=== PATIENT | male | born 1970 | race Caucasian/White ===

== ENCOUNTER 2024-02-10 04:46 | Emergency (ER) | payer MEDICARE, SELFPAY ==
[2024-02-10 04:51] VITALS: BP 148/78
--- NOTE | 2024-02-10 06:15 | ED.GENMED ---
History of Present Illness
General
Chief Complaint: Musculo-Skeletal Complaint
Source: patient
Time Seen by Provider: 02/10/24 06:05
History of Present Illness
History of Present Illness:
53-year-old male presents to the emergency room complaining of pain in his right groin. Pain has been present for over a month but was recently exacerbated. Patient first noticed the discomfort after helping someone move. Pain is worse with
certain movements and walking. Recently he helped an individual move a hot water heater at the end of the day he noticed the pain have been exacerbated further. No nausea, vomiting, diarrhea. He has not noticed any bulging in that area but was
concerned he may be developing a hernia.
Past History
Past History
ED Past Medical History: None
ED Past Surgical History: None
Social History
Tobacco: Non-smoker
Alcohol: None
Drug: None
Personal: Single
Living: with family
Employment: Employed
Phy Exam
Physical Exam
Physical Exam:
General: Awake, Alert, Oriented X3. No acute distress.
Vitals: unremarkable
Head: Atraumatic
Eyes: Pupils equal, EOMI
Throat: Airway intact, no exudates
Neck: Trachea midline
Abd: Soft, Nontender, No pulsatile mass, no inguinal masses or hernia noted
Neuro: Nonfocal
Skin: Warm, dry, no rash
Extremities: pulses equal b/l, no edema
Course
Orders/Labs/Results
Orders:
Orders
02/10/24 06:16
Ibuprofen [Motrin] 400 mg PO NOW STA
Vital Signs
Initial and Last Documented VS:
Initial Vital Signs
Temp Pulse Resp BP Pulse Ox
97.8 F 89 18 148/78 99
02/10/24 04:51 02/10/24 04:51 02/10/24 04:51 02/10/24 04:51 02/10/24 04:51
Last Documented Vital Signs
Temp Pulse Resp BP Pulse Ox
97.8 F 89 18 148/78 99
02/10/24 04:51 02/10/24 04:51 02/10/24 04:51 02/10/24 04:51 02/10/24 04:51
MDM/Problems Addressed
Differential Diagnosis Includes:
muscle strain, hernia,
*Critical Care Note
Total Time (30-74mins, 75-104mins- exclusive of procedures): Not Applicable
ED Attending Note
-
Portions of this chart may have been created with voice recognition software.� Occasional wrong word or��sound alike� substitutions may have occurred due to the inherent limitations of voice recognition software.
Discharge Plan
Departure
Patient Disposition: Home (Routine Discharge)
Date of Disposition: 02/10/24
Time of Disposition: 06:15
Patient with high blood pressure during this ER visit?: Yes
Condition: Good
Discharge Problem:
Groin strain
Instructions: Groin Strain ED, BLOOD PRESSURE
Prescriptions:
No Action
cephalexin [Keflex] 500 MG capsule
500 mg PO TID Qty: 21 0RF
acetaminophen-codeine 1 TABLET tablet
1 tab PO Q6HPRN PRN (Reason: pain) Qty: 8 0RF
clotrimazole [Antifungal (clotrimazole)] 1 APPLIC cream
1 applic topical BID Qty: 15 0RF
Rx Instructions:
apply to affected area bid x 10 days. Please dispense sufficient quantity.
Referrals:
Pauly Dickey DO [Family Provider] -
Activity Restrictions/Additional Instructions:
Please follow up with your family doctor. I believe you would benefit from physical therapy which they can give you a prescription for if they agree. In addition to Tylenol you can also take 400mg of ibuprofen every 6 hours for pain as needed.
Interventions
Interventions:
*Risk Screen - Suicide Last Done: 02/10/24 04:48
*General Assessment Last Done: 02/10/24 06:38
*Neglect/Abuse Screening Last Done: 02/10/24 04:48
ED- Fall Risk Assessment Last Done: 02/10/24 06:36
*ED COVID-19 Vaccine History Last Done: 02/10/24 06:36
*Nursing Disposition Last Done: 02/10/24 06:38
ED-Musculoskeletal Assessment Last Done: 02/10/24 06:36
Discharge Date and Time
Discharge Date/Time: 02/10/24 06:47
Print Language: GERMAN
[2024-02-10] MEDS: MOTRIN 400 MG PO (06:23)
== END 2024-02-10 06:47 | disposition home or self-care (01) ==
LOC: EMR 04:46
PROVIDERS: EMERGENCY PHYSICIAN Emergency Medicine; FAMILY PHYSICIAN Family Medicine
DX: S39.011A Strain of muscle, fascia and tendon of abdomen, initial encounter (principal); X58.XXXA Exposure to other specified factors, initial encounter
CPT/HCPCS: 99282